=== PATIENT | female | born 1930 | race Caucasian/White ===

== ENCOUNTER 2017-04-22 10:09 | Emergency (ER) | payer OTHER ==
[~2017-04-22] VITALS: Ht 157.5 cm; Wt 64.5 kg
[~2017-04-22 10:09] MED LIST: BACT2OIN TOP; CITA10TA4 PO; COUM5TAB PO; COZA100T PO; HYDR-2768 PO; LORA0.5T PO; PROC60TA PO; TOPR50TA PO; WELC625T2 PO
[2017-04-22 10:30] VITALS: BP 143/66; PULSE 82; RESP 16; TEMP 97.9; O2SAT 97
--- NOTE | 2017-04-22 10:42 | PD ---
HPI Chief Complaint: Fall Time Seen by Provider: 10:42 Travel History International Travel<30 days: No Contact w/Intl Traveler<30days: No Traveled to known affect area: No History of Present Illness HPI 87-year-old female came to the emergency room with her friend with history of a fall 2 weeks ago. Patient landed on her bottom. Since then the lower back has been hurting. Patient also has a spine stimulator there and they were concerned if it was damaged is still functional. There is [employer] device. Patient was able to walk initially but the pain is slowly worsening. As per the patient and the friend they tried calling her chronic pain coordinator but were unsuccessful and hence came here. They're also concerned that patient has not been urinating very well for past 2 days and has mostly been dribbling micturition. Vital signs are stable. PFSH Past Medical History Narrative Medical List of her past medical, surgical, social and family history is reviewed from the nursing note. 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) Endocrine: No Gastrointestinal Disorders: Yes Genitourinary: No Hypertension: Yes Immune Disorder: No Implanted Vascular Access Dvce: Yes Musculoskeletal: No Neurologic: No Psychiatric: No Reproductive: No Respiratory: No Immunizations Current: Yes ?: Not Menopausal: Yes Past Surgical History Abdominal Surgery: Yes (CYSTECTOMY) Body Medical Devices: PAIN PUMP INPLACE Cholecystectomy: Yes Eye Surgery: Yes (RIGHT CATARACT REMOVED) Oral Surgery: Yes (TONSILLECTOMY) Pacemaker: No Other Surgery: Yes Social History Alcohol Use: No Tobacco Use: No Substance Use: No Allergies-Medications (Allergen,Severity, Reaction): Coded Allergies: Sulfa (Sulfonamide Antibiotics) (Unverified Allergy, Severe, HIVES, ) Comments List of her allergies reviewed from the nursing note. Reported Meds & Prescriptions Reported Meds & Active Scripts Active Ibuprofen 400 Mg Tab 400 Mg PO Q6H PRN Reported Lorazepam 0.5 Mg Tab 0.5 Mg PO HS PRN Multiple Vitamin 1 Tab 1 Tab PO DAILY Tylenol (Acetaminophen) 325 Mg Tab 325 Mg PO Q4H PRN Calcium 600 with Vitamin D (Calcium Carbonate-Cholecalciferol) 600-400 mg-Unit Tab 1 Tab PO DAILY Vitamin B-12 (Cyanocobalamin) 500 Mcg Tab 500 Mcg PO DAILY Citalopram (Citalopram Hydrobromide) 10 Mg Tab 10 Mg PO HS Metoprolol Succinate ER 24 HR (Metoprolol Succinate) 100 Mg Tab 100 Mg PO HS Losartan (Losartan Potassium) 100 Mg Tab 100 Mg PO DAILY Nifedipine ER 24 HR (Nifedipine) 60 Mg Tab 60 Mg PO DAILY Narrative Medication List of her home medications reviewed from the nursing note. Review of Systems Except as stated in HPI: all other systems reviewed are Neg Musculoskeletal: Positive: Pain Physical Exam Narrative GENERAL: Awake, alert, moderate distress, elderly, looks younger than her age. SKIN: Focused skin assessment warm/dry. HEAD: Atraumatic. Normocephalic. EYES: Pupils equal and round. No scleral icterus. No injection or drainage. ENT: No nasal bleeding or discharge. Mucous membranes pink and moist. NECK: Trachea midline. No JVD. CARDIOVASCULAR: Regular rate and rhythm. No murmur appreciated. RESPIRATORY: No accessory muscle use. Clear to auscultation. Breath sounds equal bilaterally. GASTROINTESTINAL: Abdomen soft, non-tender, nondistended. Hepatic and splenic margins not palpable. MUSCULOSKELETAL: No obvious deformities. No clubbing. No cyanosis. No edema. NEUROLOGICAL: Awake and alert. No obvious cranial nerve deficits. Motor grossly within normal limits. Normal speech. PSYCHIATRIC: Appropriate mood and affect; insight and judgment normal. Data Data Last Documented VS Orders Orders ^ Other Nursing Orders (04/22/17 10:51) Acetamin-Hydrocod 325-5 Mg ([place] 5-325 (04/22/17 11:00) Urinalysis - C+S If Indicated (04/22/17 10:51) Pelvis, Ap Only (Routine) (04/22/17 ) Ed Discharge Order (04/22/17 12:07) Labs Laboratory Tests Test 04/22/17 11:30 Urine Collection Type CLEAN CATCH Urine Color YELLOW Urine Turbidity CLEAR Urine pH 5.5 Urine Specific [place] 1.015 Urine Protein NEG mg/dL Urine Glucose (UA) NEG mg/dL Urine Ketones NEG mg/dL Urine Occult Blood NEG Urine Nitrite NEG Urine Bilirubin NEG Urine Leukocyte Esterase NEG Urine Squamous Epithelial Cells 0-5 /hpf Microscopic Urinalysis Comment CULT NOT INDICATED MDM Medical Decision Making Medical Screen Exam Complete: Yes Emergency Medical Condition: Yes Medical Record Reviewed: Yes Differential Diagnosis Pelvic fracture, urinary retention, UTI Narrative Course 12:38 PM post void residual urine was scanned by bladder scanner and it was only 66 cc. Based on this I have ruled out urinary retention. I tried to contact [employer] and see if they could come and check the stimulator. However I was told by the high school admissions representative that she couldn't come to the emergency room for next 4-5 hours since she was in a procedure with the doctor. However patient should be able to tell if it is working or not since they'll be some vibrations. When I went and explained this to the patient she said she could feel the vibration in the back and going down her leg. UA is negative. At this point I'm comfortable discharging her home. Her and her friend and answered all the questions to the best of my ability. Procedures EKG Prior to Arrival: No Diagnosis Primary Impression: Back contusion Qualified Codes: S20.229A - Contusion of unspecified back wall of thorax, initial encounter Additional Impressions: Acute exacerbation of chronic low back pain Fall Qualified Codes: W19.XXXA - Unspecified fall, initial encounter Referrals: Primary Care Physician Additional Instructions: take medication as per the prescription direction. Warm compress alternating with cold compress will be helpful. Follow-up with your pain coordinator. Med/Other Pt SpecificInfo: Prescription(s) given Scripts Ibuprofen (Ibuprofen) 400 Mg Tab 400 MG PO Q6H Y for PAIN SCALE 1 TO 5, #30 TAB 0 Refills Prov: Jaja Braun MD 04/22/17 Disposition: 01 DISCHARGE HOME Condition: Stable Jaja Braun MD Apr 22, 2017 10:42
[2017-04-22] MEDS ORDERED: ACETAMINOPHEN/HYDROcodone 325 MG/5 MG TAB PO ONE (11:00)
--- NOTE | 2017-04-22 11:20 | RADRPT ---
EXAM DATE/TIME: 04/22/2017 11:02 [facility] COMPARISON: No previous studies available for comparison. INDICATIONS : Bilateral hip/pelvis pain post fall 2 weeks ago. MEDICAL HISTORY : Hypertension. Deep venous thrombosis. SURGICAL HISTORY : Tonsillectomy. Cholecystectomy. Right rotator cuff repair. Pain stimulator. ENCOUNTER: Initial ACUITY: 2 weeks PAIN SCORE: 8/10 LOCATION: Bilateral hips/ pelvis FINDINGS: A single frontal view of the pelvis demonstrates no evidence of fracture. There is a lumbar spine ne ural stimulator in place. The bony pelvic ring is intact. Bony mineralization is normal. The soft t issues are intact. CONCLUSION: 1. No acute fracture or dislocation. Giorgi Delvalle MD on April 22, 2017 at 11:17 Board Certified Radiologist. This report was verified electronically.
[2017-04-22 11:46] LABS: BLOOD, URINE NEG (NEG); GLUCOSE,URINE NEG (NEG); KETONE, URINE NEG (NEG); NITRITE,URINE NEG (NEG); PH, URINE 5.5 (5.0-8.5)
[2017-04-22 11:51] LABS: METHOD OF COLLECTION CLEAN CATCH; URINE COLOR YELLOW (YELLW/STRAW)
[2017-04-22 11:52] LABS: SQUAMOUS EPITHELIAL CELL URINE 0-5 /hpf (0-5)
[2017-04-22 11:53] VITALS: BP 152/72; PULSE 76; RESP 18; O2SAT 97
[2017-04-22 12:01] LABS: COMMENT (UR) CULT NOT INDICATED; CULTURE IF INDICATED CULT NOT INDICATED
[2017-04-22] MEDS ORDERED: IBUP1TAB5 PO (12:09)
[2017-04-22] MEDS ORDERED: METO1TAB43 PO (12:21)
[2017-04-22] MEDS ORDERED: NIFE60TA58 PO (12:21)
[2017-04-22] MEDS ORDERED: MULTTAB67 PO (12:21)
[2017-04-22] MEDS ORDERED: TYLE325T PO (12:21)
[2017-04-22] MEDS ORDERED: LOSA100T PO (12:21)
[2017-04-22] MEDS ORDERED: CITA10TA4 PO (12:21)
[2017-04-22] MEDS ORDERED: CALC1TAB87 PO (12:21)
[2017-04-22] MEDS ORDERED: LORA0.5T PO (12:21)
[2017-04-22] MEDS ORDERED: VITA500T4 PO (12:21)
[2017-04-22 12:36] VITALS: BP 154/70
== END 2017-04-22 12:40 | disposition home or self-care (01) ==
LOC: PHED 10:09
DX: S20.229A Contusion of unspecified back wall of thorax, initial encounter (principal); M54.5 Low back pain; G89.29 Other chronic pain; I10 Essential (primary) hypertension; W19.XXXA Unspecified fall, initial encounter
CPT/HCPCS: 72170; 81001; 99284

== ENCOUNTER 2017-04-26 13:56 | Emergency (ER) | payer OTHER ==
[~2017-04-26] VITALS: Ht 157.5 cm; Wt 59.1 kg
[~2017-04-26 13:56] MED LIST changes: -BACT2OIN TOP; +CALC1TAB87 PO; -COUM5TAB PO; -COZA100T PO; -HYDR-2768 PO; +IBUP1TAB5 PO; +LOSA100T PO; +METO1TAB43 PO; +MULTTAB67 PO; +NIFE60TA58 PO; -PROC60TA PO; -TOPR50TA PO; +TYLE325T PO; +VITA500T4 PO; -WELC625T2 PO
[2017-04-26 14:05] VITALS: BP 184/81; PULSE 82; RESP 16; TEMP 97.8; O2SAT 97
[2017-04-26 14:15] VITALS: BP 184/81; PULSE 81; RESP 18; TEMP 97.8; O2SAT 99
--- NOTE | 2017-04-26 14:36 | PD ---
HPI Chief Complaint: General Weakness Time Seen by Provider: 14:21 Travel History International Travel<30 days: No Contact w/Intl Traveler<30days: No Traveled to known affect area: No History of Present Illness HPI This is an 87-year-old female who presents to the emergency department with generalized weakness. She says she just hasn't felt right this morning. She says limits her time to go with her time to go. She denies any chest pain, shortness of breath, fevers or chills. She had some back pain earlier in the week after a fall but she denies any back pain currently. She says she is not depressed. She's not really sure why she came to the emergency department. She lives with her sister and her niece. Her symptoms are improving and mild. 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) Endocrine: No Gastrointestinal Disorders: Yes Genitourinary: No Hypertension: Yes Immune Disorder: No Implanted Vascular Access Dvce: Yes (nerve stimulator for spinal stenosis 2013) Musculoskeletal: No Neurologic: No Psychiatric: No Reproductive: No Respiratory: No Immunizations Current: Yes Tetanus Vaccination: < 5 Years Influenza Vaccination: Yes ?: Not Menopausal: Yes Past Surgical History Abdominal Surgery: Yes (CYSTECTOMY) Body Medical Devices: PAIN PUMP INPLACE Cholecystectomy: Yes Eye Surgery: Yes (RIGHT CATARACT REMOVED) Oral Surgery: Yes (TONSILLECTOMY) Pacemaker: No Other Surgery: Yes Social History Alcohol Use: No Tobacco Use: No Substance Use: No Allergies-Medications (Allergen,Severity, Reaction): Coded Allergies: Sulfa (Sulfonamide Antibiotics) (Unverified Allergy, Severe, HIVES, ) Reported Meds & Prescriptions Reported Meds & Active Scripts Active Ibuprofen 400 Mg Tab 400 Mg PO Q6H PRN Reported Lorazepam 0.5 Mg Tab 0.5 Mg PO HS PRN Multiple Vitamin 1 Tab 1 Tab PO DAILY Tylenol (Acetaminophen) 325 Mg Tab 325 Mg PO Q4H PRN Calcium 600 with Vitamin D (Calcium Carbonate-Cholecalciferol) 600-400 mg-Unit Tab 1 Tab PO DAILY Vitamin B-12 (Cyanocobalamin) 500 Mcg Tab 500 Mcg PO DAILY Citalopram (Citalopram Hydrobromide) 10 Mg Tab 10 Mg PO HS Metoprolol Succinate ER 24 HR (Metoprolol Succinate) 100 Mg Tab 100 Mg PO HS Losartan (Losartan Potassium) 100 Mg Tab 100 Mg PO DAILY Nifedipine ER 24 HR (Nifedipine) 60 Mg Tab 60 Mg PO DAILY Review of Systems Except as stated in HPI: all other systems reviewed are Neg Physical Exam Narrative GENERAL:Well appearing, no acute distress SKIN: Focused skin assessment warm and dry. HEAD: Atraumatic. Normocephalic. EYES: Pupils equal and round. No injection or drainage. ENT: Moist mucous membranes NECK: Trachea midline. CARDIOVASCULAR: Regular rate and rhythm. No murmur appreciated. RESPIRATORY: Clear to auscultation. Breath sounds equal bilaterally. GASTROINTESTINAL: Abdomen soft, non-tender, nondistended. MUSCULOSKELETAL: No obvious deformities. NEUROLOGICAL: Awake and alert. No obvious cranial nerve deficits. Moving all extremities. PSYCHIATRIC: Appropriate mood and affect; insight and judgment normal. Data Data Last Documented VS Vital Signs Date Time Temp Pulse Resp B/P (MAP) Pulse Ox O2 Delivery O2 Flow Rate FiO2 04/26/17 14:15 97.8 81 18 184/81 (115) 99 Room Air Orders Orders Complete Blood Count With Diff (04/26/17 14:27) Comprehensive Metabolic Panel (04/26/17 14:27) Troponin I (04/26/17 14:27) ^ Insert Iv (04/26/17 14:27) Electrocardiogram (04/26/17 ) Urinalysis - C+S If Indicated (04/26/17 14:28) Labs Laboratory Tests Test 04/26/17 14:50 04/26/17 14:55 Urine Color LIGHT-YELLOW Urine Turbidity CLEAR Urine pH 6.5 Urine Specific [place] 1.005 Urine Protein NEG mg/dL Urine Glucose (UA) NEG mg/dL Urine Ketones NEG mg/dL Urine Occult Blood NEG Urine Nitrite NEG Urine Bilirubin NEG Urine Urobilinogen LESS THAN 2.0 MG/DL Urine Leukocyte Esterase NEG Urine WBC LESS THAN 1 /hpf Urine Squamous Epithelial Cells <1 /hpf Microscopic Urinalysis Comment CULT NOT INDICATED White Blood Count 8.0 TH/MM3 Red Blood Count 3.78 MIL/MM3 Hemoglobin 12.6 GM/DL Hematocrit 36.8 % Mean Corpuscular Volume 97.3 FL Mean Corpuscular Hemoglobin 33.4 PG Mean Corpuscular Hemoglobin Concent 34.3 % Red Cell Distribution Width 13.4 % Platelet Count 217 TH/MM3 Mean Platelet Volume 8.9 FL Neutrophils (%) (Auto) 59.1 % Lymphocytes (%) (Auto) 26.7 % Monocytes (%) (Auto) 11.8 % Eosinophils (%) (Auto) 1.5 % Basophils (%) (Auto) 0.9 % Neutrophils # (Auto) 4.7 TH/MM3 Lymphocytes # (Auto) 2.1 TH/MM3 Monocytes # (Auto) 0.9 TH/MM3 Eosinophils # (Auto) 0.1 TH/MM3 Basophils # (Auto) 0.1 TH/MM3 CBC Comment DIFF FINAL Differential Comment Blood Urea Nitrogen 25 MG/DL Creatinine 1.31 MG/DL Random Glucose 104 MG/DL Total Protein 7.7 GM/DL Albumin 3.6 GM/DL Calcium Level 9.2 MG/DL Alkaline Phosphatase 162 U/L Aspartate Amino Transf (AST/SGOT) 20 U/L Alanine Aminotransferase (ALT/SGPT) 24 U/L Total Bilirubin 0.2 MG/DL Sodium Level 139 MEQ/L Potassium Level 4.8 MEQ/L Chloride Level 110 MEQ/L Carbon Dioxide Level 23.0 MEQ/L Anion Gap 6 MEQ/L Estimat Glomerular Filtration Rate 38 ML/MIN Troponin I LESS THAN 0.02 NG/ML MDM Medical Decision Making Medical Screen Exam Complete: Yes Emergency Medical Condition: Yes Interpretation(s) Afebrile, no tachycardia, hypertensive no leukocytosis mild renal insufficiency, troponin normal urinalysis: no infection EKG: Normal sinus rhythm Differential Diagnosis arrythmia, nstemi, electrolyte abnormality, dehydration Narrative Course This is an 87-year-old female who presents to the emergency department with nonspecific symptoms of weakness. Her labs are reassuring EKG is reassuring. I think the patient is safe to be discharged. She can follow-up with her primary care physician. Diagnosis Primary Impression: Weakness Patient Instructions: General Instructions Additional Instructions: If you develop severe chest pain, shortness of breath, sweating, lightheadedness , dizziness or difficulty breathing return to the emergency department immediately. Followup with your primary care physician in 2-3 days if your symptoms are not resolved. Med/Other Pt SpecificInfo: No Change to Meds Disposition: 01 DISCHARGE HOME Condition: Stable Rozina Blanton MD Apr 26, 2017 14:36
[2017-04-26 15:00] VITALS: BP 178/98; PULSE 78; RESP 18; O2SAT 97
[2017-04-26 15:17] LABS: AUTOMATED NEUTROPHIL # 4.7 TH/MM3 (1.8-7.7); BASOPHIL # 0.1 TH/MM3 (0-0.2); BASOPHIL % 0.9 % (0.0-2.0); EOSINOPHIL # 0.1 TH/MM3 (0-0.4); EOSINOPHIL % 1.5 % (0.0-4.0); HEMATOCRIT 36.8 % (35.0-46.0); HEMOGLOBIN 12.6 GM/DL (11.6-15.3); LYMPH % 26.7 % (9.0-44.0); LYMPHOCYTE # 2.1 TH/MM3 (1.0-4.8); MEAN CELL VOLUME 97.3 FL (80.0-100.0); MEAN CORPUSCULAR HEMOGLOBIN 33.4 PG (27.0-34.0); MEAN CORPUSCULAR HGB CONC 34.3 % (32.0-36.0); MEAN PLATELET VOLUME 8.9 FL (7.0-11.0); MONO % 11.8 % (0.0-8.0); MONOCYTE # 0.9 TH/MM3 (0-0.9); NEUT % 59.1 % (16.0-70.0); PLATELET COUNT 217 TH/MM3 (150-450); RED BLOOD COUNT 3.78 MIL/MM3 (4.00-5.30); RED CELL DISTRIBUTION WIDTH 13.4 % (11.6-17.2)
[2017-04-26 15:21] LABS: BILIRUBIN, URINE NEG (NEG); BLOOD, URINE NEG (NEG); GLUCOSE,URINE NEG (NEG); KETONE, URINE NEG (NEG); NITRITE,URINE NEG (NEG); PH, URINE 6.5 (5.0-8.5); SQUAMOUS EPITHELIAL CELL URINE <1 /hpf (0-5); URINE COLOR LIGHT-YELLOW (YELLW/STRAW); URINE LEUKOCYTE ESTERASE NEG (NEG)
[2017-04-26 15:28] LABS: ALBUMIN 3.6 GM/DL (3.4-5.0); AST (GOT) 20 U/L (15-37); BLOOD UREA NITROGEN 25 MG/DL (7-18); CALCIUM 9.2 MG/DL (8.5-10.1); CHLORIDE 110 MEQ/L (98-107); CREATININE 1.31 MG/DL (0.50-1.00); GLOMERULAR FILTRATION RATE 38 ML/MIN (>89); GLUCOSE,RANDOM 104 MG/DL (74-106); SODIUM (NA) 139 MEQ/L (136-145)
[2017-04-26 15:33] LABS: ALKALINE PHOSPHATASE 162 U/L (45-117); ALT (GPT) 24 U/L (10-53); TOTAL BILIRUBIN ADULT 0.2 MG/DL (0.2-1.0); TOTAL PROTEIN 7.7 GM/DL (6.4-8.2); TROPONIN I LESS THAN 0.02 NG/ML (0.02-0.05)
[2017-04-26 16:00] VITALS: BP 169/77; PULSE 78; RESP 26; O2SAT 97
--- NOTE | 2017-04-27 17:01 | EKG ---
Date Performed: 04/26/2017 Time Performed: 15:17:04 PTAGE: 87 years EKG: Sinus rhythm Since previous tracing, no significant change noted NORMAL ECG PREVIOUS TRACING : 12/31/2013 10.19 DOCTOR: Rosi Rodriguez Interpretating Date/Time 04/27/2017 17:00:14
== END 2017-04-26 16:44 | disposition home or self-care (01) ==
LOC: NEPC 13:56
DX: R53.1 Weakness (principal); M54.9 Dorsalgia, unspecified; N28.9 Disorder of kidney and ureter, unspecified; I10 Essential (primary) hypertension; Z79.899 Other long term (current) drug therapy; Z88.2 Allergy status to sulfonamides; Z86.718 Personal history of other venous thrombosis and embolism
CPT/HCPCS: 80053; 81001; 84484; 85025; 93005; 99284